=== PATIENT | male | born 1935 | race Caucasian/White ===

== ENCOUNTER 2018-12-22 13:30 | Emergency (ER) | payer MEDICARE, OTHER ==
[~2018-12-22] VITALS: Ht 175.3 cm; Wt 94.1 kg
[2018-12-22 13:36] VITALS: TEMP 99
[2018-12-22] MEDS ORDERED: PROSCAR 5MG5 MG PO (15:06)
[2018-12-22] MEDS ORDERED: MULTI VITAMINS1 TAB PO (15:07)
[2018-12-22] MEDS ORDERED: LYRICA300 MG PO (15:07)
[2018-12-22] MEDS ORDERED: LYRICA 150MG C150 MG PO (15:07)
[2018-12-22] MEDS ORDERED: FLOMAX 0.40.4 MG/CAP PO (15:07)
[2018-12-22] MEDS ORDERED: MIRALAX PA17 GM/Dose PO (15:08)
[2018-12-22] MEDS ORDERED: VITAMINC1000TA (15:08)
[2018-12-22] MEDS ORDERED: THE MEDICINE S200 M2 PO (15:10)
[2018-12-22] MEDS ORDERED: IRON 27 MG PO (15:10)
[2018-12-22 17:05] VITALS: BP 172/81; PULSE 68
== END 2018-12-22 17:10 | disposition short-term general hospital (02) ==
LOC: COL.ER 13:30
DX: S06.5X0A Traumatic subdural hemorrhage without loss of consciousness, initial encounter (principal); S01.01XA Laceration without foreign body of scalp, initial encounter; R40.2412 Glasgow coma scale score 13-15, at arrival to emergency department; Z88.0 Allergy status to penicillin; Z23 Encounter for immunization; Z88.5 Allergy status to narcotic agent; W01.198A Fall on same level from slipping, tripping and stumbling with subsequent striking against other object, initial encounter; G62.9 Polyneuropathy, unspecified; Y92.009 Unspecified place in unspecified non-institutional (private) residence as the place of occurrence of the external cause; Y93.E1 Activity, personal bathing and showering
CPT/HCPCS: J2060; J7030; J7050